=== PATIENT | male | born 1975 | race Caucasian/White ===

== ENCOUNTER 2017-06-10 15:52 | Emergency (ER) | payer OTHER ==
[~2017-06-10] VITALS: Ht 160 cm; Wt 103.2 kg
[~2017-06-10 15:52] MED LIST: ATEN25TA PO; HYDR12.53 PO; LISI2.5T PO
[2017-06-10 16:21] LABS: BASOPHILS # (AUTO) 0.03 x10^3/uL (0-0.1); BASOPHILS % (AUTO) 0 % (0-1); EOSINOPHILS # (AUTO) 0.08 x10^3/uL (0-0.4); EOSINOPHILS % (AUTO) 1 % (1-7); LYMPHOCYTES # (AUTO) 1.69 x10^3/uL (1-3.4); LYMPHOCYTES % (AUTO) 21 % (22-44); MD NO; MEAN CORPUSCULAR HEMOGLOBIN 28.6 pg (27.5-34.5); MEAN CORPUSCULAR HGB CONC 34.2 g/dL (33.2-36.2); MEAN CORPUSCULAR VOLUME 83.6 fL (81-97); MEAN PLATELET VOLUME 7.6 fL (7.4-10.4); MONOCYTES # (AUTO) 0.79 x10^3/uL (0.2-0.8); MONOCYTES % (AUTO) 10 % (2-9); NEUTROPHILS # (AUTO) 5.41 x10^3/uL (1.8-6.8); NEUTROPHILS % (AUTO) 68 % (42-75); PLATELET COUNT 322 x10^3/uL (130-400); RED BLOOD COUNT 5.83 x10^6/uL (4.38-5.82); RED CELL DISTRIBUTION WIDTH 14.8 % (9.4-14.8)
[2017-06-10] MEDS ORDERED: ATENOLOL 25 MG TABLET PO STA (16:25)
[2017-06-10] MEDS ORDERED: DIPHENHYDRAMINE 50 MG/ML, 1ML IVPush ONE (16:30)
[2017-06-10] MEDS ORDERED: HYDROCHLOROTHIAZIDE 25 MG TABLET PO ONE (16:30)
[2017-06-10] MEDS ORDERED: SODIUM CHLORIDE 0.9% 1,000ML IVBOLUS ONE (16:30)
[2017-06-10] MEDS ORDERED: PROCHLORPERAZINE 5 MG/ML, 2ML IVPush ONE (16:30)
[2017-06-10] MEDS ORDERED: LISINOPRIL 10 MG TABLET PO ONE (16:30)
[2017-06-10] MEDS ORDERED: KETOROLAC 30 MG/1 ML IVPush ONE (16:30)
[2017-06-10] MEDS ORDERED: SODIUM CHLORIDE FLUSH 10ML SYR IVF ONE (16:30)
[2017-06-10 17:16] LABS: ANION GAP 11 mmol/L (5-15); CALCIUM 8.7 mg/dL (8.5-10.1); CHLORIDE 106 mmol/L (98-107); CREATININE 1.43 mg/dL (0.7-1.3)
[2017-06-10 18:12] VITALS: BP 184/117
== END 2017-06-10 18:16 | disposition home or self-care (01) ==
LOC: ED 17:40
DX: G44.1 Vascular headache, not elsewhere classified (principal); I10 Essential (primary) hypertension; K21.9 Gastro-esophageal reflux disease without esophagitis
CPT/HCPCS: 36415; 71045; 80048; 82040; 83880; 85025; 93005; 96360; 96361; 99285; J7030